=== PATIENT | female | born 1975 | race Caucasian/White ===

== ENCOUNTER → 2017-09-18 10:41 | Outpatient (CLI) | payer MEDICAID, SELFPAY ==
--- NOTE | 2017-09-18 11:13 | VDLE_ITS ---
Reason For Study: edema RIGHT LEFT CFV is compressible, spontaneous, phasic, CFV is compressible, spontaneous, phasic, competent and demonstrates normal competent, and demonstrates normal augmentation. augmentation. FV is compressible, spontaneous, phasic, FV is compressible, spontaneous, phasic, competent and demonstrates normal competent and demonstrates normal augmentation. augmentation. POP V is compressible, spontaneous, phasic, POP V is compressible, spontaneous, phasic, competent and demonstrates normal competent and demonstrates normal augmentation. augmentation. T/P Trunk is compressible. T/P Trunk is compressible. PTV is compressible. PTV is compressible. RT PerV is compressible. LT PerV is compressible. S-F Junction is competent. S-F Junction is competent. GSV is incompetent throughout. GSV GSV is incompetent throughout. GSV measures .412 x .472 cm. measures .394 x .395 cm. SSV is incompetent. SSV measures .246 x .239 SSV is competent. cm. Procedure Exam performed in department. The exam was diagnostic. Interpretation Summary Deep veins of the lower extremities are bilaterally patent and compressible segmentally. There is no evidence of deep vein thrombosis on either side. Valvular competence appears intact within the proximal deep venous systems bilaterally. The greater saphenous veins appear bilaterally patent and compressible segmentally. Sapheno-femoral junctions are bilaterally competent . Segmental valvular incompetence is noted within the greater saphenous veins bilaterally. The right small saphenous vein is patent and incompetent. The left small saphenous vein is patent and competent. Ordering Physician: Rosi Myers Performed By: Guanaco Hampton RVT
== END ==
PROVIDERS: Family Provider Family Medicine; PCP Family Medicine; Visit Provider Podiatrist
DX: I87.2 Venous insufficiency (chronic) (peripheral) (principal); R60.0 Localized edema
CPT/HCPCS: 93970